=== PATIENT | female | born 1970 | race Caucasian/White ===

== ENCOUNTER → 2016-03-08 | Outpatient (CLI) | payer BC, OTHER | LOC: SUN.DIA | DX: E11.65 Type 2 diabetes mellitus with hyperglycemia (principal); Z71.3 Dietary counseling and surveillance; E78.5 Hyperlipidemia, unspecified; I10 Essential (primary) hypertension | CPT/HCPCS: G0109 ==

== ENCOUNTER → 2016-03-15 | Outpatient (CLI) | payer BC, OTHER | LOC: SUN.DIA 14:28 | DX: E11.65 Type 2 diabetes mellitus with hyperglycemia (principal); Z71.3 Dietary counseling and surveillance; E78.5 Hyperlipidemia, unspecified; I10 Essential (primary) hypertension | CPT/HCPCS: G0109 ==

== ENCOUNTER → 2016-03-22 | Outpatient (CLI) | payer BC, OTHER | LOC: SUN.DIA 11:57 | DX: E11.65 Type 2 diabetes mellitus with hyperglycemia (principal); Z71.3 Dietary counseling and surveillance; E78.5 Hyperlipidemia, unspecified; I10 Essential (primary) hypertension | CPT/HCPCS: G0109 ==

== ENCOUNTER → 2016-04-05 | Outpatient (CLI) | payer BC, OTHER | LOC: SUN.DIA 09:30 | DX: E11.65 Type 2 diabetes mellitus with hyperglycemia (principal); Z79.84 Long term (current) use of oral hypoglycemic drugs; E66.9 Obesity, unspecified; Z68.41 Body mass index [BMI] 40.0-44.9, adult; Z71.3 Dietary counseling and surveillance; E78.5 Hyperlipidemia, unspecified; I10 Essential (primary) hypertension | CPT/HCPCS: G0108; G0109 ==

== ENCOUNTER → 2016-05-09 | Outpatient (CLI) | payer BC, OTHER | LOC: SUN.DIA 14:31 | DX: E11.65 Type 2 diabetes mellitus with hyperglycemia (principal); Z79.84 Long term (current) use of oral hypoglycemic drugs; E66.9 Obesity, unspecified; Z68.41 Body mass index [BMI] 40.0-44.9, adult; Z71.3 Dietary counseling and surveillance; E78.5 Hyperlipidemia, unspecified; I10 Essential (primary) hypertension | CPT/HCPCS: G0108 ==

== ENCOUNTER 2017-10-03 08:01 | Day surgery (SDC) | payer BC, OTHER ==
[~2017-10-03] VITALS: Ht 162.7 cm; Wt 104.5 kg
[2017-10-03] MEDS ORDERED: GOOD SENSE ANTI-IT1% (08:57)
[2017-10-03] MEDS ORDERED: GLUCOPHAGE500 MG/TAB PO (08:58)
[2017-10-03] MEDS ORDERED: MEVACOR10 MG PO (08:58)
[2017-10-03] MEDS ORDERED: TOPROL XL100 MG PO (08:59)
[2017-10-03] MEDS ORDERED: ACCUPRIL20TAB PO (09:00)
[2017-10-03] MEDS ORDERED: MICROGESTIN FE1 TA1 PO (09:00)
[2017-10-03] MEDS ORDERED: ASPIRIN E.C. 8181 MG PO (09:01)
[2017-10-03 09:18] LABS: HEMATOCRIT 39.2 % (37.0-47.0); HEMOGLOBIN 13.1 g/dl (12.5-16.0); MEAN CELL VOLUME 92 fl (80.0-100.0); MEAN CORPUSCULAR HEMOGLOBIN 31 pg (27.0-31.0); MEAN CORPUSCULAR HGB CONC 33 g/dl (33.0-37.0); MEAN PLATELET VOLUME 10.6 fl (7.4-10.4); PLATELET COUNT 290 K/mm3 (130-400); RED BLOOD COUNT 4.26 M/mm3 (4.10-5.30); REDCELL DISTRIBUTION WIDTH-CV 13.2 % (11.5-14.5)
[2017-10-03 09:22] VITALS: BP 136/68; PULSE 87; TEMP 98
[2017-10-03 09:26] LABS: PROTHROMBIN TIME 11.2 SECONDS (9.7-12.8)
[2017-10-03 09:28] LABS: CALCIUM 8.8 mg/dL (8.4-10.2); CREATININE, serum 0.43 mg/dL (0.52-1.25); POTASSIUM 4.4 mmol/L (3.4-5.0)
[2017-10-03 11:00] VITALS: BP 149/94; PULSE 84
[2017-10-03 11:40] VITALS: BP 149/94; PULSE 84; TEMP 98
[2017-10-03 11:55] VITALS: BP 104/70; PULSE 83; TEMP 98
[2017-10-03 12:10] VITALS: BP 110/72; PULSE 78; TEMP 98
[2017-10-03 12:25] VITALS: BP 10/68; PULSE 77; TEMP 98
== END 2017-10-03 16:31 | disposition home or self-care (01) ==
LOC: COL.CAR 08:01
PROVIDERS: Internal Medicine Cardiovascular Disease
DX: R07.9 Chest pain, unspecified (principal); I10 Essential (primary) hypertension; E78.5 Hyperlipidemia, unspecified; E11.9 Type 2 diabetes mellitus without complications; Z79.84 Long term (current) use of oral hypoglycemic drugs; Z79.82 Long term (current) use of aspirin; Z82.49 Family history of ischemic heart disease and other diseases of the circulatory system
CPT/HCPCS: C1760; C1769; C1894; J1644; J2250; J3010; Q9967